=== PATIENT | male | born 1980 | race Caucasian/White ===

== ENCOUNTER 2021-07-31 08:51 | Outpatient (CLI) | payer BC | END 2021-07-31 08:52 | disposition home or self-care (01) | LOC: TBSIIMAG 08:51 | PROVIDERS: ATTEND Specialist | DX: M51.17 Intervertebral disc disorders with radiculopathy, lumbosacral region (principal); M47.816 Spondylosis without myelopathy or radiculopathy, lumbar region; M51.36 Other intervertebral disc degeneration, lumbar region | CPT/HCPCS: 72148 ==

== ENCOUNTER 2021-09-08 15:38 | Outpatient (CLI) | payer BC ==
[2021-09-08 16:46] LABS: Hemoglobin 14.2 g/dL (13.5-17.5); Mean Corpuscular HGB CONC 32.8 g/dL (32.0-36.0); Mean Corpuscular Volume 97.5 fl (81.2-95.1); Mean Platelet Volume 9.7 fl (7.4-10.4); Platelet Count 358 10x3/uL (150-450); Red Blood Cell (RBC) Count 4.44 10x6/uL (4.32-5.72); White Blood Cell (WBC) Count 8.7 10x3/uL (3.5-10.5)
[2021-09-08 17:05] LABS: INR-International Normal Ratio 0.9; PTT 22.8 sec (22.0-33.0); Prothrombin Time 9.5 sec (9.5-12.1)
[2021-09-08 17:07] LABS: Anion Gap 13 mmol/L (10-20); BUN (Urea Nitrogen) 19 mg/dL (8.9-20.6); Calc. Creatinine Clearance 0 mL/min (70-130); Calcium 9.8 mg/dL (7.8-10.44); Carbon Dioxide 31 mmol/L (22-29); Chloride 99 mmol/L (98-107); Glucose 121 mg/dL (70-105); Potassium 4.6 mmol/L (3.5-5.1); Sodium 138 mmol/L (136-145)
[2021-09-09 23:25] LABS: SARS-CoV-2 PCR by NAA Not Detected (NotDetected)
== END 2021-09-08 15:39 | disposition home or self-care (01) ==
LOC: LABBT 15:38
PROVIDERS: ATTEND Surgery
DX: Z01.818 Encounter for other preprocedural examination (principal); M51.16 Intervertebral disc disorders with radiculopathy, lumbar region; M48.062 Spinal stenosis, lumbar region with neurogenic claudication; Z20.822 Contact with and (suspected) exposure to COVID-19
CPT/HCPCS: 80048; 85027; 85610; 85730; 93005; 93010; U0003; U0005

== ENCOUNTER 2021-09-11 05:54 | Observation (INO) | payer BC ==
[2021-09-09 11:51] VITALS: BMI 22.1
[2021-09-11] MEDS ORDERED: ceFAZolin 2 GM/DEX 5% 100 ML BAG ONE (06:07)
[2021-09-11] MEDS ORDERED: Thrombin 5000 UNITS/5 ML VIAL ONE (06:39)
[2021-09-11] MEDS ORDERED: Scopolamine 1.5 mg/72 hour Patch ONE (06:48)
[2021-09-11] MEDS ORDERED: Fentanyl 100 MCG/2 ML VIAL ONE ×2 (06:49→09:43)
[2021-09-11] MEDS ORDERED: SUGAMMADEX SODIUM 200 MG/2 ML VIAL ONE (07:15)
[2021-09-11] MEDS ORDERED: Midazolam HCl 2 mg/2 ml Vial ONE (07:15)
[2021-09-11] MEDS ORDERED: PROPOFOL 200 MG/20 ML VIAL ONE (07:34)
[2021-09-11] MEDS ORDERED: Ondansetron PF 4 MG/2 ML Vial ONE (07:34)
[2021-09-11] MEDS ORDERED: Dexamethasone 20 MG/5 ML VIAL ONE (07:34)
[2021-09-11] MEDS ORDERED: Lidocaine 1% PF 5 ML VIAL ONE (07:34)
[2021-09-11] MEDS ORDERED: Ketorolac Tromethamine 30 MG/ML VIAL ONE (07:34)
[2021-09-11] MEDS ORDERED: Rocuronium Bromide 10 MG/ML (10ML VIAL) ONE (07:34)
[2021-09-11] MEDS ORDERED: Promethazine HCl 25 MG/ML VIAL IVPB PRN (09:16)
[2021-09-11] MEDS ORDERED: Ondansetron HCl/PF 4 MG/2 ML Vial IVP PRN (09:16)
[2021-09-11] MEDS ORDERED: Promethazine HCl 25 MG/ML VIAL IM PRN (09:16)
[2021-09-11] MEDS ORDERED: Meperidine HCl/PF 25 MG/ML VIAL SLOW IVP PRN (09:16)
[2021-09-11] MEDS ORDERED: HYDROmorphone 2 MG/ML VIAL SLOW IVP PRN (09:16)
[2021-09-11] MEDS ORDERED: tiZANidine HCl 4 MG TAB PO PRN (09:29)
[2021-09-11] MEDS ORDERED: Acetaminophen 325 MG TAB PO PRN (09:29)
[2021-09-11] MEDS ORDERED: traMADol HCl 50 MG TAB PO PRN (09:29)
[2021-09-11] MEDS ORDERED: Zolpidem Tartrate 5 MG TAB PO PRN (09:32)
[2021-09-11] MEDS ORDERED: HYDROmorphone 0.5 MG/0.5 ML SYRINGE ONE ×2 (09:51→10:08)
[2021-09-11] MEDS ORDERED: Labetalol HCl 100 MG/20 ML VIAL ONE (10:03)
[2021-09-11] MEDS: Morphine 4 MG/ML VIAL SLOW IVP PRN ×2 (10:45→16:18)
[2021-09-11] MEDS: Sodium Chloride 0.9% 1,000 ML IV SCH ×2 (11:03→23:56)
[2021-09-11] MEDS: HYDROcodone/Acetaminophen 10/325 mg Tablet PO PRN ×3 (11:57→23:43)
[2021-09-11] MEDS: Acetaminophen/Codeine 30-300mg Tablet PO PRN (13:20)
[2021-09-11] MEDS ORDERED: FLU VACC QS2021-22(6MOS UP)/PF 60 MCG/0.5 ML SYRINGE IM ONE (13:45)
[2021-09-11] MEDS ORDERED: ceFAZolin Sodium/D5W 2 GM in Premix Bag 1 BAG IVPB SCH (15:00)
[2021-09-11] MEDS ORDERED: CEFAZOLIN 2 GM in Premix Bag 1 BAG IVPB SCH ×2 (15:00→23:00)
[2021-09-11] MEDS: CEFAZOLIN 2 GM in Premix Bag 1 BAG IVPB SCH ×2 (16:29→23:30)
[2021-09-12] MEDS: Sodium Chloride 0.9% 1,000 ML IV SCH (00:27)
[2021-09-12] MEDS: HYDROcodone/Acetaminophen 10/325 mg Tablet PO PRN ×2 (07:15→13:03)
[2021-09-12 11:40] VITALS: BP 126/70; TEMP 98
[2021-09-12] MEDS: Acetaminophen/Codeine 30-300mg Tablet PO PRN (11:46)
== END 2021-09-12 13:36 | disposition home or self-care (01) ==
LOC: SDC 05:54 → SURG A 10:53
PROVIDERS: ADMIT Surgery; ATTEND Surgery
PROC: 01NB0ZZ Release Lumbar Nerve, Open Approach (ICD-10-PCS; principal; 2021-09-11)
DX: M48.062 Spinal stenosis, lumbar region with neurogenic claudication (principal); M51.16 Intervertebral disc disorders with radiculopathy, lumbar region; M51.17 Intervertebral disc disorders with radiculopathy, lumbosacral region; E78.5 Hyperlipidemia, unspecified
CPT/HCPCS: 76000; 96374; 96375; 96376; G0378; J0690; J1100; J1170; J1885; J2250; J2270; J2405; J2704; J3010; J3370